=== PATIENT | female | born 2000 | race Caucasian/White ===

== ENCOUNTER 2019-10-10 05:55 | Inpatient (IN) | payer BC, SELFPAY ==
[2019-10-10] VITALS (66 sets, daily range): BP systolic 97–208; BP diastolic 55–179; PULSE 57–121; RESP 18; TEMP 36.4–36.8; O2SAT 99–100; BMI 31.2
[2019-10-10 06:48] LABS: Basophils Percent Auto 0.2 % (0.2-1.2); Eosinophils Absolute Auto 0.1 K/mm3 (0-0.3); Eosinophils Percent Auto 0.7 % (0-4.4); Hematocrit 36.7 % (37.0-47.0); Hemoglobin 12.3 g/dL (12.0-15.0); Immature Granulocyte Absolute 0.19 K/mm3 (0.00-0.031); Immature Granulocyte Percent A 1.5 % (0-0.5); Lymphocytes Absolute Auto 2.37 K/mm3 (0.9-3.2); Lymphocytes Percent Auto 19.1 % (18.3-44.2); Mean Corpuscular HGB Conc 33.5 g/dl (32-36); Mean Corpuscular Hemoglobin 30.2 pg (26-34); Mean Corpuscular Volume 90.2 fl (80-100); Mean Platelet Volume 11.2 fl (7.4-10.4); Monocytes Percent Auto 7.8 % (2.6-8.5); Neutrophils Absolute Auto 8.8 K/mm3 (1.3-6.7); Neutrophils Percent Auto 70.7 % (45.5-73.1); Platelet Count Result 246 k/mm3 (150-375); Red Blood Count 4.07 M/mm3 (4.2-5.4); Red Cell Distribution Width 13.1 % (11.5-14.5); White Blood Count 12.4 K/mm3 (4.5-10.0)
[2019-10-10] MEDS: LACTATED RINGERS 1,000 ML 125 ML IV CONT ×2 (06:51→10:20)
[2019-10-10] MEDS: OXYTOCIN 30 UNITS/NS 500 ML 30 UNITS/500 ML BAG 6 UNITS IV CONT (06:52)
--- NOTE | 2019-10-10 07:12 | WPDOBADMIT ---
Obstetrics - Admit Note Admission Note: record reviewed. No pertinent additions to the history and/or any subsequent changes in the physical findings that are not consistent with the expected course of the were found. Additions to the history and/or subsequent changes in the physical findings follow. None.Here for MIL. Cervix 1-2/50/-2 AROM clear. FHT's reactive
--- NOTE | 2019-10-10 07:25 | LDADM ---
This patient, Amber Cook, was admitted to Labor/Delivery/Recovery 107 on 10/10/19 at 05:55. Plans for labor, pain management and were discussed with patient. Patient/family oriented to hospital policies and general routines including ID bracelet, bed and alarms, visiting hours, pain management, procedures, bathroom and other care routines, personal items, smoking policy, room service/diet and guest tray routines, security routines, and visiting hours. Patient/Family are encouraged to report perceived risks to care and to ask questions if they do not understand what they are told or what they should do. See OBIX for further documentation.
[2019-10-10 09:03] LABS: Rapid Plasma Reagin Non-Reactive (NonReactive)
--- NOTE | 2019-10-10 10:55 | WPDANESEPPF ---
Anes - Initial Pre Proc Eval Date/Time: 10/10/19 10:55 Surgeon: Edita Lamb MD Pre Op Diagnosis: Induction of Labor Patient Data Age: 19 Gender: F Height: 5 ft 2 in Weight: 77.5 kg Last Vital Signs Temp 36.7 C 10/10/19 08:03 Pulse 78 10/10/19 10:53 BP 108/68 10/10/19 10:53 Pulse Ox 100 10/10/19 10:52 Allergies Allergy/AdvReac Type Severity Reaction Status Date / Time amoxicillin Allergy Unknown HIVES Verified 09/18/19 12:52 prednisone Allergy Unknown HIVES Verified 09/18/19 12:52 Home Medications Medication Instructions Recorded Confirmed Type PNV cmb#95-ferrous fumarate-FA 1 tablet PO DAILY 09/18/19 09/18/19 History [] ergocalciferol (vitamin D2) 50,000 unit PO WEEKLY 09/18/19 09/18/19 History [Vitamin D2] ferrous sulfate 325 mg PO DAILY 09/18/19 09/18/19 History Laboratory Tests 10/10/19 10/10/19 10/10/19 06:35 06:35 06:35 WBC 12.4 K/mm3 H K/mm3 (4.5-10.0) RBC 4.07 M/mm3 L M/mm3 (4.2-5.4) Hgb 12.3 g/dL g/dL (12.0-15.0) Hct 36.7 % L % (37.0-47.0) MCV 90.2 fl fl (80-100) MCH 30.2 pg pg (26-34) MCHC 33.5 g/dl g/dl (32-36) RDW 13.1 % % (11.5-14.5) Plt Count 246 k/mm3 k/mm3 (150-375) MPV 11.2 fl H fl (7.4-10.4) Immature Gran % (Auto) 1.5 % H % (0-0.5) Neut % (Auto) 70.7 % % (45.5-73.1) Lymph % (Auto) 19.1 % % (18.3-44.2) Maverick % (Auto) 7.8 % % (2.6-8.5) Eos % (Auto) 0.7 % % (0-4.4) Baso % (Auto) 0.2 % % (0.2-1.2) Lymph # (Auto) 2.37 K/mm3 K/mm3 (0.9-3.2) Maverick # (Auto) 1.0 K/mm3 H K/mm3 (0.1-0.6) Eos # (Auto) 0.1 K/mm3 K/mm3 (0-0.3) Baso # (Auto) 0.0 K/mm3 K/mm3 (0.0-0.1) Abs Immat Gran (auto) 0.19 K/mm3 H K/mm3 (0.00-0.031) Absolute Neuts (auto) 8.8 K/mm3 H K/mm3 (1.3-6.7) Absolute Nucleated RBC 0.0 K/mm3 K/mm3 (0.0-0.012) Nucleated RBC % 0.0 % % (0.0-0.2) RPR Non-reactive (NonReactive) Blood Type A Positive Antibody Screen Negative Patient hx anesthesia problems: none Family hx anesthesia problems: none PMFSH Past Medical History Medical History Anxiety Borderline personality disorder Depression Family History Family History Father Diverticulitis Grandparent Diabetes mellitus Grandparent Heart disease Social History Social History Smoking status: Never smoker Substance use: current Spiritual care concerns: No Anes - Eval Final PreProcedure Day of Procedure 10/10/19 10:55 Patient weight: obese Heart: regular rate and rhythm Lungs: clear to auscultation Last oral intake: >/= 8 hours ASA classification: III Emergent: no Anesthetic plan: proceed Anesthesia type and monitoring: regional epidural and standard monitoring Informed Consent: The patient's anesthetic plan and its attendant risks and benefits were discussed with the patient/family/POA. Questions were solicited and answers provided to the satisfaction of the patient/family/POA.
[2019-10-10] MEDS: ONDANSETRON INJ 4 MG/2 ML VIAL IV PUSH (16:04)
--- NOTE | 2019-10-10 19:16 | PM.OBPRVD ---
OB - Delivery Note Procedure Delivery date: 10/10/19 Procedure: Intrapartal events: None Induction method: AROM and per pitocin protocol Delivery monitor: external FHT and external uterine Route of delivery: Laceration description: Perineal - 1st Degree Delivery repair: vicryl (3-0) Specimen: No Estimated blood loss (mL): 200 Anesthesia type: Epidural Disposition: floor Baby Weeks of gestation at delivery: 39 gender: Female Weight (pounds): 7 presentation: vertex Placenta delivery description: Spontaneous cord vessel description: 3 Vessels score one minute: 8 score five minutes: 9
--- NOTE | 2019-10-10 19:17 | PM.OBDSVD ---
DS: Diagnosis Discharge Diagnosis (1) 39 weeks gestation of : Code(s): Z3A.39 - 39 weeks gestation of Status: Acute (2) (normal spontaneous vaginal delivery): Code(s): O80 - Encounter for full-term uncomplicated delivery Status: Acute OB - DS: Summary OB Procedures : Ultrasound OB Procedures Intrapartum: Spontaneous Vag Delivery OB Procedures: : None Peripartum Data Delivery Method: Natural Vaginal Laceration description: Perineal - 1st Degree complications: none Status at Discharge Functional status at discharge: independent ambulation Overall status at discharge: patient is progressing back to baseline Time Spent with Patient Time attestation: Total time spent providing and/or coordinating discharge services: DS: Data Data Completed and Pending Labs on day of discharge: Labs from last 24 hours 10/10/19 10/10/19 10/10/19 06:35 06:35 06:35 WBC 12.4 H RBC 4.07 L Hgb 12.3 Hct 36.7 L MCV 90.2 MCH 30.2 MCHC 33.5 RDW 13.1 Plt Count 246 MPV 11.2 H Immature Gran % (Auto) 1.5 H Neut % (Auto) 70.7 Lymph % (Auto) 19.1 Divide % (Auto) 7.8 Eos % (Auto) 0.7 Baso % (Auto) 0.2 Lymph # (Auto) 2.37 Divide # (Auto) 1.0 H Eos # (Auto) 0.1 Baso # (Auto) 0.0 Abs Immat Gran (auto) 0.19 H Absolute Neuts (auto) 8.8 H Absolute Nucleated RBC 0.0 Nucleated RBC % 0.0 RPR Non-reactive Blood Type A Positive Antibody Screen Negative Discharge Plan Discharge Attending physician on discharge: Edita Lamb Discharging Clinician: Edita Lamb Anticipated Discharge Date/Time: 10/12/19 07:17 Patient Disposition: Home, Self-Care Activity: may shower and pelvic rest Diet: regular Patient Instructions: Antibiotic Form Stand Alone Forms: General Discharge Information Follow-up/Referrals: Edita Lamb MD [Primary Care Provider] - 6 Weeks Discharge Medications: Continued ferrous sulfate 325 mg (65 mg iron) Tablet 325 mg PO DAILY RF: 0 ergocalciferol (vitamin D2) [Vitamin D2] 1,250 mcg (50,000 unit) Capsule 50,000 unit PO WEEKLY RF: 0 PNV cmb#95-ferrous fumarate-FA [] 28 mg iron- 800 mcg Tablet 1 tablet PO DAILY RF: 0 Date of admission: 10/10/19 05:55 Primary Care Provider: Edita Lamb Admitting Provider: Edita Lamb Attending physician on admission: Edita Lamb Condition: Stable Care Plan Goals: DepoProvera prior to DC
[2019-10-10] MEDS: OXYTOCIN 30 UNITS/NS 500 ML 30 UNITS/500 ML BAG 125 UNITS IV CONT (19:37)
[2019-10-10] MEDS: IBUPROFEN 600 MG TABLET PO (21:02)
[2019-10-10] MEDS: BENZOCAINE 20% AER SPR (*SP) 56 GM CAN 1 SPRAY TOPICAL (21:26)
[2019-10-10] MEDS: WITCH HAZEL 40 PADS 1 PAD TOPICAL (21:27)
--- NOTE | 2019-10-10 21:57 | OBPPTRN ---
Patient transferred to post room # via ( ). Support person present. Oriented to unit, room, information board, rooming in, admission packet and security measures. Patient verbalizes understanding.
--- NOTE | 2019-10-10 21:57 | OBPPTRN ---
Patient transferred to post room #281 via wheelchair with baby in bassinet. Support person present. Oriented to unit, room, information board, rooming in, admission packet and security measures. Patient verbalizes understanding.
[2019-10-11] MEDS: IBUPROFEN 600 MG TABLET PO ×3 (04:34→18:35)
[2019-10-11 05:42] LABS: Hematocrit 31.5 % (37.0-47.0); Hemoglobin 10.5 g/dL (12.0-15.0)
[2019-10-11 07:40] VITALS: BP 125/80; PULSE 68; RESP 18; TEMP 37.1; O2SAT 99
--- NOTE | 2019-10-11 08:00 | PC.NURSE ---
PT introductions made and plan of care discussed per post , pain management, bottle feeding, daily care activities. PT verbalized understanding of such care.
--- NOTE | 2019-10-11 08:05 | WPDANLDPN2 ---
Anes-Prog Note L&D Date/Time: 10/11/19 08:05 Comfortable throughout: labor and delivery Neuraxial method: epidural Epidural/Spinal procedure site: clean & non-tender Neuro status: Neuro function grossly intact. Cardiovascular status: normal Respiratory status: normal Airway patency: baseline Mental status: baseline Post-Op hydration status: normal Vital Signs: Last Vital Signs Temp 36.7 C 10/10/19 22:30 Pulse 79 10/10/19 22:30 Resp 18 10/10/19 22:30 BP 134/85 10/10/19 22:30 Pulse Ox 99 10/10/19 22:30 I/O: Intake & Output 10/10/19 10/11/19 10/11/19 23:59 07:59 15:59 Output Total 152 Balance -152 Post-procedural complaints: none Patient feedback: Patient satisfied with anesthetic care.
--- NOTE | 2019-10-11 08:19 | P.PNOB_ITS ---
OB - PN: Subj Subjective Date/time seen: 10/11/19 08:19 Patient comments: no complaints, pain well controlled, tolerating diet and flatus present [place] baby status: doing well and bottle feeding well [place] feeding status: exclusively bottle feeding OB - PN: Obj Data Labs CBC & Chem 7: 10/11/19 04:56 Labs: Laboratory Results - last 24 hr 10/10/19 10/11/19 06:35 04:56 Hgb 10.5 L Hct 31.5 L RPR Non-reactive OB - PN A/P Plan day: 1 Plan: routine care Time Spent With Patient Time: Total time spent is greater than 50% in coordination of care (as documented) at patient's floor/unit and/or counseling patient: Time with patient: less than 15 minutes Review of Systems Constitutional: Constitutional: Reports no additional constitutional complaints Cardiovascular: Cardiovascular: Reports no additional cardiovascular complaints Respiratory: Respiratory: Reports no additional respiratory complaints Gastrointestinal: Gastrointestinal: Reports no additional gastrointestinal complaints Genitourinary: Genitourinary: Reports no additional female genitourinary complaints Exam Const: General: comfortable, no acute distress, alert and awake Resp: Effort & Inspection: normal respiratory effort Auscultation: clear to auscultation bilaterally Cardio: Rate: regular rate GI: Auscultation: normal bowel sounds Other: Fundus Firm below umbilicus
--- NOTE | 2019-10-11 08:30 | PC.NURSE ---
PT introductions made and plan of care discussed per post , pain management, bottle feeding, daily care activities. PT verbalized understanding of such care.
[2019-10-11] MEDS: DOCUSATE SODIUM 100 MG CAPSULE PO ×2 (10:48→18:34)
[2019-10-11] MEDS: ACETAMINOPHEN 325 MG TABLET 650 MG PO ×2 (10:49→18:34)
[2019-10-11] MEDS: BENZOCAINE 20% AER SPR (*SP) 56 GM CAN 1 SPRAY TOPICAL (18:37)
[2019-10-11] MEDS: WITCH HAZEL 40 PADS 1 PAD TOPICAL (18:37)
[2019-10-11 20:00] VITALS: BP 101/64; PULSE 65; RESP 18; TEMP 36.7; O2SAT 98
[2019-10-12] MEDS: IBUPROFEN 600 MG TABLET PO ×2 (02:58→09:28)
[2019-10-12] MEDS: ACETAMINOPHEN 325 MG TABLET 650 MG PO ×2 (02:58→09:29)
--- NOTE | 2019-10-12 07:33 | PM.OBPNVD ---
OB - PN: Subj Subjective Date/time seen: 10/12/19 07:33 Patient comments: no complaints and pain well controlled baby status: doing well and bottle feeding well OB - PN: Obj Data Labs CBC & Chem 7: 10/11/19 04:56 OB - PN A/P Plan day: 2 Plan: routine care, discharge home and other (DepoProvera) Time Spent With Patient Time: Total time spent is greater than 50% in coordination of care (as documented) at patient's floor/unit and/or counseling patient: Exam : Bimanual exam- vagina & uterus: other (Uterus firm, nt @U)
--- NOTE | 2019-10-12 08:00 | PC.NURSE ---
PT introductions made and plan of care discussed per post , pain management, bottle feeding, daily care activities and pending discharge to home. PT verbalized she has not fed baby a bottle yet. PT was informed that she had to feed baby herself prior to being discharged to home. PT verbalized understanding of such care.
[2019-10-12 08:40] VITALS: BP 130/87; PULSE 64; RESP 16; TEMP 37.4; O2SAT 100
[2019-10-12] MEDS: DOCUSATE SODIUM 100 MG CAPSULE PO (09:28)
[2019-10-12 09:30] VITALS: PULSE 64; RESP 16; O2SAT 100
--- NOTE | 2019-10-12 12:36 | PC.NURSE ---
PT received discharge instructions per protocol and verbalized understanding of such instructions.
[2019-10-12] MEDS: medroxyPROGESTERone ACETATE IM 150 MG/ML SYR IM (14:47)
--- NOTE | 2019-10-12 14:55 | PC.NURSE ---
PT discharged to home ambulatory accompanied by significant other and to waiting car. Follow up appts confirmed
[2019-10-13 11:01] VITALS: BP 128/82; PULSE 63; RESP 20; TEMP 37; O2SAT 100
== END 2019-10-12 14:55 | disposition home or self-care (01) | DRG 807 ==
LOC: ANHLDR 19:18 → ANHOB2 22:10
PROVIDERS: Admitting Provider Obstetrics & Gynecology Gynecology; PCP Obstetrics & Gynecology Gynecology; Visit Provider Obstetrics & Gynecology Gynecology
DX: O99.344 Other mental disorders complicating childbirth (principal); Z37.0 Single live birth; Z3A.39 39 weeks gestation of pregnancy; F60.3 Borderline personality disorder; F41.8 Other specified anxiety disorders; O69.81X0 Labor and delivery complicated by cord around neck, without compression, not applicable or unspecified; O70.0 First degree perineal laceration during delivery; O99.214 Obesity complicating childbirth; E66.9 Obesity, unspecified
CPT/HCPCS: 36415; 85014; 85018; 85025; 86592; 86850; 86900; 86901; A9270; J1050; J2405; J2590; J2795; J3010; J7120

== ENCOUNTER 2021-06-01 16:35 | Emergency (ER) | payer BC, SELFPAY ==
[2021-06-01 16:53] VITALS: BP 110/90; PULSE 77; RESP 18; TEMP 37.2; O2SAT 100
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
[2021-06-01] MEDS: DOXYCYCLINE HYCLATE 100 MG TABLET PO (17:59)
== END 2021-06-01 18:06 | disposition home or self-care (01) ==
PROVIDERS: Emergency Provider Nurse Practitioner
DX: Z20.2 Contact with and (suspected) exposure to infections with a predominantly sexual mode of transmission (principal)
CPT/HCPCS: 81003; 87491; 87591; 99214; A9270; G0463

== ENCOUNTER 2021-07-03 09:54 | Emergency (ER) | payer BC, SELFPAY ==
[2021-07-03 10:08] VITALS: BP 115/80; PULSE 77; RESP 16; TEMP 36.6; O2SAT 100
--- NOTE | 2021-07-03 10:49 | ED.URI ---
HPI - URI/Sore Throat General Chief Complaint: Shortness of Breath/Dyspnea Stated Complaint: Covid Sx/Exposure Time Seen by Provider: 07/03/21 10:48 Source: patient and RN notes reviewed Mode of arrival: ambulatory Limitations: no limitations History of Present Illness HPI Narrative: 20-year-old female presents with concern for nasal congestion, Covid exposure. Reports her symptoms started today. She has not taken any [id number] medications, she left work when she started feeling flushed and sweaty. MD elicited complaint: cough and sore throat Related Data Allergies Allergy/AdvReac Type Severity Reaction Status Date / Time amoxicillin Allergy Unknown HIVES Verified 07/03/21 10:22 prednisone Allergy Unknown HIVES Verified 07/03/21 10:22 Review of Systems Review of Systems: CONSTITUTIONAL: Denies malaise, chills, or fever. Reports sweats EYES: Denies visual changes, redness, or discharge. ENT: Reports rhinorrhea. Denies congestion, sinus pain, otalgia and sore throat. CARDIOVASCULAR: Denies chest pain, palpitations, or edema. RESPIRATORY: Reports occasional cough. Denies dyspnea. GASTROINTESTINAL: Denies abdominal pain, nausea, vomiting, diarrhea SKIN: Denies rash or itching. MUSCULOSKELETAL: Denies myalgia. NEUROLOGIC: Denies headache. All systems reviewed & are unremarkable except as noted in HPI and below PMFSH Past Medical History Medical History (Updated 07/03/21 @ 11:40 by Fabby Umanzor NP) Anxiety Borderline personality disorder Depression Family History Family History Father Diverticulitis Grandparent Diabetes mellitus Grandparent Heart disease Social History Social History Smoking status: Never smoker Substance use: current Spiritual care concerns: No Comments At time of signature, agree with nursing past medical, surgical, social and family history. There is no relevant family history pertinent to the presenting complaint Exam Narrative: GENERAL: Well-appearing, well-nourished, and in no acute distress. HEAD: Normocephalic EYES: PERRLA, conjunctivae clear ENT: Nares clear, clear discharge. Mucous membranes moist. TM pearly garcia with sharp light reflex bilaterally; no tragal tenderness. Oropharynx not erythematous without lesions. Tonsils not enlarged and without exudate, no drooling, no hoarseness, no trismus, uvula midline. NECK: Supple. No lymphadenopathy CHEST: Clear to auscultation, breath sounds equal. No wheezing, rhonchi, rales, or stridor. No respiratory distress, speaks in full sentences. HEART: Regular rate and rhythm. No murmur heard. SKIN: Warm, dry, no rash. NEURO: Alert and oriented x3. PSYCH: Normal mood and affect Course Course Emergency Course: Patient is aware of diagnosis, understands and agrees to treatment plan. Anticipatory guidance given. Patient agrees to follow-up as directed and is aware of reasons to seek care at the emergency department. Portions of this record may have been created with voice recognition software Vital Signs Vital signs: Vital Signs Temperature 97.9 F 07/03/21 10:08 Pulse Rate 77 07/03/21 10:08 Respiratory Rate 16 07/03/21 10:08 Blood Pressure 115/80 07/03/21 10:08 Pulse Oximetry 100 07/03/21 10:08 Temperature 97.9 F 07/03/21 10:08 Pulse Rate 77 07/03/21 10:08 Respiratory Rate 16 07/03/21 10:08 Blood Pressure 115/80 07/03/21 10:08 Pulse Oximetry 100 07/03/21 10:08 Reviewed. MDM - URI/Sore Throat MDM Narrative Medical decision making narrative: Differential diagnosis considered: Stehi virus, strep pharyngitis, allergic rhinitis, upper respiratory tract infection, sinusitis, rhinosinusitis, nasopharyngitis. viral pharyngitis, otitis media, otitis externa, pneumonia, bronchitis, viral cough syndrome, viral syndrome, and influenza. Exam findings show no acute concerns or changes; patient
== END 2021-07-03 11:45 | disposition home or self-care (01) ==
PROVIDERS: Emergency Provider Nurse Practitioner
DX: J06.9 Acute upper respiratory infection, unspecified (principal); Z20.822 Contact with and (suspected) exposure to COVID-19
CPT/HCPCS: 87426; 99213; C9803; G0463